=== PATIENT | female | born 1960 | race Caucasian/White ===

== ENCOUNTER 2017-11-16 13:27 | Outpatient (CLI) | payer BC | END 2017-11-16 13:28 | disposition short-term general hospital (02) | LOC: EMS 13:27 | PROVIDERS: ATTEND Surgery | DX: S68.126A Partial traumatic metacarpophalangeal amputation of right little finger, initial encounter (principal); W29.3XXA Contact with powered garden and outdoor hand tools and machinery, initial encounter; Y92.009 Unspecified place in unspecified non-institutional (private) residence as the place of occurrence of the external cause | CPT/HCPCS: A0425; A0427 ==

== ENCOUNTER 2017-11-30 13:23 | Outpatient (CLI) | payer BC ==
--- NOTE | 2017-12-01 16:10 | Mammography Report ---
Procedure Date: 11/30/2017 Accession Number: [id number] / [id number] Procedure: MGN - Screening Mammo Dig Bilat CPT Code: FULL RESULT: EXAM: Screening Mammo Dig Bilat DATE: 11/30/2017 1:43 PM CLINICAL HISTORY: 57-year-old female with late childbearing and history of early menses as well as family history of cancer in her mother at age 62 presents for screening mammogram. TECHNIQUE: Bilateral CC and MLO views were obtained. COMPARISON: 02/26/2016, 06/08/2013, 05/19/2009, 01/04/2008. FINDINGS: The breasts demonstrate scattered fibroglandular densities bilaterally. No suspicious masses, clustered microcalcifications, or regions of architectural distortion are identified. IMPRESSION: Negative examination RECOMMENDATION: Routine annual screening unless otherwise clinically indicated. BIRADS CATEGORY 1: Negative STANDARD QUALIFYING STATEMENTS: 1. This examination was reviewed with the aid of Computer-Aided Detection (CAD). 2. A negative or benign imaging report should not delay biopsy if clinically suspicious findings are present. Consider surgical consultation if warrented. More than 5% of cancers are not identified by imaging. 3. Dense breasts may obscure an underlying neoplasm.
== END 2017-11-30 13:24 | disposition home or self-care (01) ==
LOC: DI.N 13:23
PROVIDERS: ATTEND Nurse Practitioner Family
DX: Z12.31 Encounter for screening mammogram for malignant neoplasm of breast (principal)
CPT/HCPCS: 77067

== ENCOUNTER 2018-01-02 10:36 | Outpatient (CLI) | payer BC ==
--- NOTE | 2018-01-05 16:17 | DEXA Report ---
Reason: POSTMENOPAUSAL Procedure Date: 01/02/2018 Accession Number: [id number] / [id number] Procedure: DEX - Dexa Spine and/or Hip CPT Code: FULL RESULT: EXAM: Dexa Spine and/or Hip DATE: 01/02/2018 11:06 AM CLINICAL HISTORY: POSTMENOPAUSAL TECHNIQUE: Dual energy x-ray absorptiometry (DXA) was performed on a DVTel System. Regions measured are the AP Spine, femoral neck, and if needed forearm. COMPARISON: None. In accordance with the International Society for Clinical Densitometry (ISCD) guidelines, data from previous exams may be reanalyzed using current recommendations and techniques. This is done to allow a more accurate basis for comparison with the current study. FINDINGS: The data for the lumbar spine is as follows: BMD (g/cm/cm) T-SCORE Z-SCORE REGION L1 1.279 1.2 1.8 L2 1.374 1.5 2.0 L3 1.517 2.6 3.2 L4 1.220 0.2 0.7 TOTAL 1.332 1.3 1.8 NOTE: All evaluable vertebrae are used for classification The data for the hip is as follows: BMD (g/cm/cm) T-SCORE Z-SCORE REGION Neck 0.979 -0.4 0.4 TOTAL 0.938 -0.6 -0.1 NOTE: The femoral neck or total proximal femur, whichever is lowest, is used for classification. IMPRESSION: THE WHO CLASSIFICATION BASED ON THE INTERNATIONAL REFERENCE STANDARD IS NORMAL. THE FRACTURE RISK IS NOT INCREASED. RECOMMENDATION: Patients with diagnosis of osteoporosis or osteopenia should have regular bone mineral density assessment. For those eligible for Medicare, routine testing is allowed once every 2 years. Testing frequency can be increased for patients who have rapidly progressing disease or for those who are receiving medical therapy to restore bone mass. COMMENT: World Health Organization (WHO) definitions for osteoporosis and osteopenia: NORMAL BMD: T-score at -1.0 or higher, fracture risk is low OSTEOPENIA BMD: T-score between -1.0 and -2.5, fracture risk is increased. OSTEOPOROSIS BMD: T-score at -2.5 or lower, fracture risk is high. National Osteoporosis Foundation recommends: 1. Obtain adequate dietary calcium (at least 1200 mg per day) and vitamin D (400-800 international units per day). 2. Participate, as appropriate, in regular weightbearing and muscle-strengthening exercise. 3. Avoid tobacco use and reduce alcohol and caffeine intake. 4. For more detailed information see the website at www.NOF.org.
== END 2018-01-02 10:37 | disposition home or self-care (01) ==
LOC: DI 10:36
PROVIDERS: ATTEND Nurse Practitioner Family
DX: Z78.0 Asymptomatic menopausal state (principal)
CPT/HCPCS: 77080

== ENCOUNTER 2019-03-07 10:30 | Outpatient (CLI) | payer BC ==
--- NOTE | 2019-03-09 11:05 | Mammography Report ---
Reason: SCREENING MAMMO Procedure Date: 03/07/2019 Accession Number: [id number] / [id number] Procedure: MGN - Screening Mammo Dig Bilat CPT Code: Final Report FULL RESULT: EXAM: Screening Mammo Dig Bilat DATE: 03/07/2019 10:51 AM CLINICAL HISTORY: Late childbearing, early menses, mother with breast cancer. TECHNIQUE: (B) - Bilateral CC and MLO views were obtained. COMPARISON: 11/30/2017, 02/26/2016, 06/08/2013, 05/19/2009 PARENCHYMAL PATTERN: (A) - The breasts demonstrate scattered fibroglandular densities bilaterally. FINDINGS: No significant interval change on the left. There are no suspicious masses, calcifications, or areas of distortion. On the right there is an enlarging faint nodular density in the posterior superior breast seen on the MLO view. It most likely lies laterally on the CC projection. Further evaluation by additional views and possible ultrasound suggested. Otherwise stable right breast. IMPRESSION: Incomplete examination. BI-RADS category 0. Needs additional evaluation right breast by spot compression, true lateral, and rotated CC projections. Ultrasound may also be needed. Negative left breast. RECOMMENDATION: (ADDMU) - Additional views using both Mammography and Ultrasound recommended. Right breast BI-RADS CATEGORY: (0) - Incomplete Examination - need additional evaluation. STANDARD QUALIFYING STATEMENTS: 1. This examination was not reviewed with the aid of Computer-Aided Detection (CAD). 2. A negative or benign imaging report should not preclude biopsy if clinically suspicious findings are present. 3. Dense breasts may obscure an underlying neoplasm. 4. This examination was reviewed without the aid of 3D breast imaging (tomosynthesis).
== END 2019-03-07 10:31 | disposition home or self-care (01) ==
LOC: DI.N 10:30
DX: Z12.31 Encounter for screening mammogram for malignant neoplasm of breast (principal); R92.8 Other abnormal and inconclusive findings on diagnostic imaging of breast; Z80.3 Family history of malignant neoplasm of breast
CPT/HCPCS: 77067

== ENCOUNTER 2019-03-30 14:25 | Outpatient (CLI) | payer BC ==
--- NOTE | 2019-03-30 15:40 | Mammography Report ---
Reason: ABNORMAL MAMMO Procedure Date: 03/30/2019 Accession Number: [id number] / [id number] Procedure: BREE - Diagnostic Dig RT CPT Code: Final Report FULL RESULT: EXAM: Diagnostic Dig RT DATE: 03/30/2019 3:07 PM CLINICAL HISTORY: Diagnostic examination. The patient is recalled from screening for a right breast asymmetry. TECHNIQUE: (R) - Right CC, spot CC, ML, spot MLO images are obtained. Focused right breast ultrasound is performed. COMPARISON: 03/07/2019 through 12/24/2006. PARENCHYMAL PATTERN: (A) - The breast(s) demonstrate(s) scattered fibroglandular densities. FINDINGS: The previously seen asymmetry persists on spot imaging and is identified as a lobulated partially obscured nodule on 3-D tomography, for example image 32 of the right cc projection and 3-D right ML image 30. Focused right breast ultrasound is performed which demonstrates a 0.9 x 0.3 x 0.9 cm gently lobulated cyst with a thin septation and no solid soft tissue component which is wider than tall at the 10:00 position 8 cm from the nipple, concordant position with typically benign appearance. No suspicious findings are made by ultrasound. There are no mammographically suspicious masses, calcifications, or areas of distortion. IMPRESSION: Benign findings. BI-RADS category 2. RECOMMENDATION: (ANNUAL) - Recommend routine annual screening mammography. BI-RADS CATEGORY: (2) - Benign Findings. STANDARD QUALIFYING STATEMENTS: 1. This examination was not reviewed with the aid of Computer-Aided Detection (CAD). 2. A negative or benign imaging report should not preclude biopsy if clinically suspicious findings are present. 3. Dense breasts may obscure an underlying neoplasm. 4. This examination was reviewed with the aid of 3D breast imaging (tomosynthesis).
== END 2019-03-30 14:26 | disposition home or self-care (01) ==
LOC: DI 14:25
PROVIDERS: ATTEND Family Medicine
DX: N60.01 Solitary cyst of right breast (principal)
CPT/HCPCS: 76642

== ENCOUNTER 2023-01-25 14:48 | Outpatient (CLI) | payer BC ==
--- NOTE | 2023-01-25 15:51 | Sleep Patient Instructions ---
Sleep Center Visit Summary - Patient Visit Information Reason for Visit: Initial consult for evaluation of sleep disordered breathing and other sleep issues. - Patient Instructions Instructions Attached: Sleep Clinic Visit, Sleep Study Home Monitor, Sleep Study Additional Instructions: You will be completing a sleep study, either an in-lab polysomnography (PSG) or home sleep study (HST). You will follow-up in the sleep care office after the sleep study is completed to hear the results and talk about therapy, if needed. You will be called by our office staff to schedule this appointment, but you may contact us with any questions. - Clinic Information Contact: [facility] [address] [place] [address] [email or web address] T: [phone]
--- NOTE | 2023-01-25 16:00 | SLEEP CARE CONSULTATION ---
Information from patient questionnaire entered by Bárbara Tidwell. I have reviewed and concur with the information entered by Bárbara Tidwell. This document represents the service I personally performed and the decisions made by me, Jo Reddy ARNP. History of Present Illness Service Date and Time: 01/25/2023 1448 Reason for Visit: New patient Chief Complaint: reports: Snoring Date of Onset: 2-3YRS Usual bedtime: 10PM Time it takes to fall asleep: 10MIN Snores at night: Yes Observed to quit breathing while asleep: Yes Sleeps alone due to snoring: No Number of times waking at night: 2-3 Reasons for waking at night: reports: Snoring (just with dozing in chair, snorted awake), Bathroom, Other (?hot flashes ). denies: Choking, Gasping for air Toss, Turn, or Twitch while sleeping: No Recalls having dreams: No Usually gets out of bed at: 6-630AM Feels refreshed in the morning: Yes Morning headache: No Sleepy or fatigued during the day: Yes (sometimes) Ever fallen asleep while driving: No (occasionally will feel sleepy sometimes on long stretches; no accidents) Takes day naps: Yes (2-3 times a week if not doing things; last around 15-20 mins) Dreams during day naps: No Prior sleep studies: No Additional HPI information: I had the pleasure of seeing JONNY RILEY today regarding the possibility of her having a sleep disorder. Her current complaint is snoring. She states that she knew that she snores but when she went on a trip with a friend who is on a CPAP and was told that she stopped breathing and was snoring loudly waking her up. She states her siblings snore loudly but no one is on a CPAP. She spoke with her PCP about her sleep and was referred here. 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 Patient is and lives in [place]. Have you smoked in the past 12 months: No Alcohol use: Yes Alcohol amount and frequency: 1 GLASS WINE 1-2X WEEK Caffeine use: Yes Caffeine amount and frequency: 3-4 CUPS EVERYDAY Family History Family history of sleep disordered breathing: Yes Family Hx Sleep Apnea: Sibling: Snoring Allergies and Home Medications Known drug allergies: No Drug allergies reviewed: Yes Home medication list reviewed: Yes Allergy and home medication list: Allergies No Known Drug Allergies Allergy (Verified 01/25/23 15:17) Home Medications Atorvastatin [Lipitor] See Rx Instructions .ROUTE .COMPLEX 01/24/23 [History] Estralnoreth See Rx Instructions .ROUTE .COMPLEX 01/24/23 [History] Losartan [Cozaar] See Rx Instructions .ROUTE .COMPLEX 01/24/23 [History] Multivitamin See Rx Instructions .ROUTE .COMPLEX 01/25/23 [History] Review of Systems Weight gain over past 5 years: 10 Cardiovascular: reports: high blood pressure Respiratory: denies: shortness of breath Gastrointestinal: denies: heartburn Urinary: reports: frequency Neurological: denies: headaches Psychiatric: denies: anxiety, depression Ear/Nose/Throat: reports: nasal congestion, wisdom teeth removed. denies: tonsillectomy Endocrine: reports: sluggishness Immunologic: denies: allergies to food or environment Physical Exam Vital signs obtained and entered by: BÁRBARA Clark MA Blood Pressure: 124/72 (LEFT ARM) Cuff size: long Heart Rate: 70 O2 Saturation: 97 Height: 5 ft 6 in Weight: 189 lb 12.8 oz Body Mass Index: 30.6 BMI Classification: Obese Neck circumference: 14.25 Mouth and throat: narrow oropharynx Soft palate: normal Hard palate: normal Uvula: normal Uvula visualization: 50% Mallampati Class II Tongue: enlarged in size with teeth amador on lateral edges Tonsils: small Neck: normal w/o lymphadenopathy or thyromegaly Heart: regular rate and rhythm Lungs: clear bilaterally Impression and Plan 1. Suspected Obstructive Sleep Apnea-Hypopnea Syndrome, as suggested by a history of loud and irregular snoring, observed cessation of breath while asleep, and excessive daytime sleepiness. Narrow oropharynx and obesity are common predisposing factors for obstructive sleep apnea-hypopnea syndrome. I recommend proceeding to polysomnography to confirm the diagnosis and to assess severity. If the patient has significant sleep disordered breathing, a manual CPAP titration study will also be performed to find the optimal treatment pressure. I informed the patient of what the sleep studies involve and after some discussion, obtained agreement to proceed. The pathophysiology of obstructive sleep apnea-hypopnea syndrome was discussed with the patient and health risks of cardiovascular and cerebrovascular disease if not treated. 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 Patient agreed to plan. * Schedule polysomnography. * Avoid long distance driving or driving when feeling sleepy. * Avoid alcohol, sedative and muscle relaxant around bedtime. * Attempt to lose weight. * Review instructions provided by trained office staff on how to prepare for the sleep study. * Return for follow-up after sleep study completed. Counseling Topics: Weight loss health impact Visit Type: In Office Time Spent with Patient (minutes): 33 Provider Statement: I spent 100% of the Face to Face Visit with the patient with greater than 50% spent counseling the patient and coordination of care.
[2023-01-25 16:05] VITALS: BP 124/72; O2SAT 97
== END 2023-01-25 14:49 | disposition home or self-care (01) ==
LOC: SC 14:48
PROVIDERS: ATTEND Nurse Practitioner Family
DX: G47.10 Hypersomnia, unspecified (principal); R53.83 Other fatigue; R06.83 Snoring; R06.81 Apnea, not elsewhere classified; E66.9 Obesity, unspecified; I10 Essential (primary) hypertension; Z68.30 Body mass index [BMI] 30.0-30.9, adult
CPT/HCPCS: 99203; 99212

== ENCOUNTER 2023-02-16 09:32 | Outpatient (CLI) | payer BC | END 2023-02-16 09:33 | disposition home or self-care (01) | LOC: SC 09:32 | PROVIDERS: ATTEND Nurse Practitioner Family | DX: G47.33 Obstructive sleep apnea (adult) (pediatric) (principal); R09.02 Hypoxemia; I10 Essential (primary) hypertension | CPT/HCPCS: 95806 ==

== ENCOUNTER 2023-03-24 09:50 | Outpatient (CLI) | payer BC ==
--- NOTE | 2023-03-24 10:12 | Sleep Patient Instructions ---
Sleep Center Visit Summary - Patient Visit Information Reason for Visit: Sleep study follow-up - Patient Instructions Additional Instructions: You are to start Positional therapy to control your sleep apnea. You may obtain positional belts or other commercial devices online. You may also use pillows to position yourself on your side or a T shirt with balls sewn into the back to help keep you on your side to sleep. We would like to follow up with you in a month to check effectiveness of therapy. Please call office to schedule a follow up appointment in the sleep care office in 1-2 months. - Clinic Information Contact: [facility] [address] [place] [address] [email or web address] T: [phone]
--- NOTE | 2023-03-24 10:17 | SLEEP CARE CONSULTATION ---
Information from patient questionnaire entered by Estella Tidwell. I have reviewed and concur with the information entered by Estella Tidwell. This document represents the service I personally performed and the decisions made by , Jo Reddy ARNP. History of Present Illness Service Date and Time: 03/24/2023 0950 Initial [place] Sleepiness Scale score: 15 (01/09/23) Current [place] Sleepiness Scale score: 12 Additional HPI information: JONNY RILEY returns for follow up and results of the recently performed home sleep study. The sleep study showed mild obstructive sleep apnea with an average AHI of 8.2 and radha oxygen saturation of 89%. I explained the pathophysiology behind obstructive sleep apnea. We then spent quite a bit of time discussing different treatment options. For mild obstructive sleep apnea, surgery and oral appliance are alternatives to nasal CPAP therapy but in moderate or severe cases, nasal CPAP is the most effective and reliable treatment. Because apnea is primarily in supine position, then positional management therapy could be effective. Methods discussed such as positioning with pillows, using a T-shirt with tennis balls in the back or commercial products that have a pillow format on back to prevent supine sleep. I reviewed the impact of weight changes on sleep apnea and strongly recommended losing weight. Patient counseled not drink alcohol less than 4 hours before bedtime as it can increase snoring and apnea. Patient was cautioned about risks of drowsy driving until sleepiness symptoms resolve. Patient denies drowsy driving. Sleep Study - Results Type of Sleep Study: Home sleep study (COMPLETED 02/16/23) Prior sleep studies: No Polysomnography/Home Sleep Study results: Physician Impression: The quality of the study is good. The length of the study is adequate (> 240 minutes). Please also see the tabulated and graphic data. 1. Obstructive Sleep Apnea-Hypopnea (ICD-10 G47.33), mild, with an AHI of 8.2/hr and radha SaO2 of 89%. During the study, the patient had 41 apneas (41 obstructive, 0 central, 0 mixed) and 20 hypopneas. The longest episode lasted 88.5 seconds. The respiratory events occurred predominantly during supine sleep (supine AHI was 44.2 and non-supine, 5.09). 2. Hypoxemia (ICD-10 R09.02), minimal, with the lowest oxygen saturation of 89 % and 0.0 minutes with SaO2 under 90%. Baseline oxygen saturation was normal (Average oxygen saturation was 94%). Allergies and Home Medications Known drug allergies: No Drug allergies reviewed: Yes Home medication list reviewed: Yes (no changes) Allergy and home medication list: Allergies No Known Drug Allergies Allergy (Verified 03/23/23 08:57) Review of Systems Review of systems same as previous: Yes (no changes) Physical Exam Vital signs obtained and entered by: Jo Rae NP Blood Pressure: 130/77 Cuff size: wrist (right) Heart Rate: 68 O2 Saturation: 98 Height: 5 ft 6 in Weight: 193 lb 12.8 oz Body Mass Index: 31.2 BMI Classification: Obese Impression and Plan 1. Obstructive Sleep Apnea-Hypopnea Syndrome, mild, with lowest oxygen saturat ion of 89%. Positive pressure therapy could benefit borderline hypertension. Since patients apnea is primarily in supine position, patient advised to try positional therapy and agreed with plan. He is also advised to lose weight as this will reduce snoring and apnea. An oral appliance can also be used for snoring but often is not covered by insurance. Follow up is scheduled for 1-2 months to check effectiveness. 2. Obesity, unspecified. Currently patients BMI is 31.2. Obesity increases the risk of apnea, CPAP pressure requirements and overall health risks especially cardiovascular and diabetes. Thus patient is advised to lose weight. * Positional therapy. * Attempt to lose weight. * Avoid alcohol consumption near bedtime. * Avoid supine sleep until using CPAP. * The patient is again cautioned about driving until sleepiness completely resolves. * Return in 1-2 months for follow up. I will assess response to therapy at that time. Counseling Topics: Sleeping position, Weight loss health impact Follow up with Sleep Care in: 1-2 months Visit Type: In Office Time Spent with Patient (minutes): 18 Provider Statement: I spent 100% of the Face to Face Visit with the patient with greater than 50% spent counseling the patient and coordination of care.
[2023-03-24 10:21] VITALS: BP 130/77; O2SAT 98
== END 2023-03-24 09:51 | disposition home or self-care (01) ==
LOC: SC 09:50
PROVIDERS: ATTEND Nurse Practitioner Family
DX: G47.33 Obstructive sleep apnea (adult) (pediatric) (principal); E66.9 Obesity, unspecified; Z68.31 Body mass index [BMI] 31.0-31.9, adult
CPT/HCPCS: 99212

== ENCOUNTER 2023-05-12 09:09 | Outpatient (CLI) | payer BC ==
--- NOTE | 2023-05-12 09:23 | Sleep Patient Instructions ---
Sleep Center Visit Summary - Patient Visit Information Reason for Visit: 6 weeks follow-up for positional therapy - Patient Instructions Additional Instructions: You were here for follow up of Positional therapy. You will be continued on positional therapy. You should follow up with sleep care in 12 months. You may contact us sooner for any questions or concerns. - Clinic Information Contact: [facility] [address] [place] [address] [email or web address] T: [phone]
--- NOTE | 2023-05-12 09:27 | SLEEP CARE CONSULTATION ---
Information from patient questionnaire entered by Estella Tidwell. I have reviewed and concur with the information entered by Estella Tidwell. This document represents the service I personally performed and the decisions made by me, Jo Reddy ARNP. History of Present Illness Service Date and Time: 05/12/2023 09 Previous diagnosis: Mild, Obstructive Sleep Apnea-Hypopnea Syndrome AHI: 8.2 Reason for follow up: other (6 WEEK F/U POSITIONAL) Prior sleep studies: No Type of Sleep Study: Home sleep study (02/16/2023 [facility]) HPI additional information: JONNY RILEY was diagnosed to have mild, AHI 8.2, obstructive sleep apnea- hypopnea syndrome and returned today for Positional therapy six week follow-up. Sleep Study - Results Prior sleep studies: No CPAP Compliance Data Compliance data discussion: She says she normally sleeps on her side and it has been easy to just sleep non- supine. Subjective On therapy, patient: reports: sleeping better, awakening more refreshed, being more awake and alert during the day, more rested overall. denies: drowsiness while driving Initial [place] Sleepiness Scale score: 15 (01/09/23) Current [place] Sleepiness Scale score: 12 Allergies and Home Medications Known drug allergies: No Drug allergies reviewed: Yes Home medication list reviewed: Yes (no changes) Allergy and home medication list: Allergies No Known Drug Allergies Allergy (Verified 05/10/23 12:02) Review of Systems Review of systems same as previous: Yes (no changes) Physical Exam Vital signs obtained and entered by: DORA CAZARES Blood Pressure: 136/72 Cuff size: wrist (right) Heart Rate: 68 O2 Saturation: 99 Height: 5 ft 6 in Weight: 193 lb 6.4 oz Body Mass Index: 31.1 BMI Classification: Obese Impression and Plan 1. Obstructive Sleep Apnea-Hypopnea Syndrome, mild. Using positional therapy, the patient has better sleep quality and is more rested overall. Patient states she normally sleeps on her side and it is sustainable. She wakes up feeling rested and is sleeping well. Her [place] has improved from 15\24 to 12\24. She will continue with positional therapy and feels comfortable enough to go up for a yearly visit at this time. She may come in if she has any problems or concerns sooner. Patient's apnea severity and rationale for treatment to reduce apnea, improve sleep quality and reduce cardiovascular and cerebrovascular events was reviewed. 2. Obesity, unspecified. Currently patients BMI is 31.1. Obesity increases the risk of apnea, CPAP pressure requirements and overall health risks especially cardiovascular and diabetes. Thus patient is advised to lose weight. -Continue positional therapy -Attempt to lose weight -Call this office if any problems -Return for follow up in 12 months, or sooner if concerns arise Counseling Topics: Sleeping position, Weight loss health impact Follow up with Sleep Care in: 1 year Visit Type: In Office Time Spent with Patient (minutes): 14 Provider Statement: I spent 100% of the Face to Face Visit with the patient with greater than 50% spent counseling the patient and coordination of care.
[2023-05-12 09:30] VITALS: BP 136/72; O2SAT 99
== END 2023-05-12 09:10 | disposition home or self-care (01) ==
LOC: SC 09:09
PROVIDERS: ATTEND Nurse Practitioner Family
DX: G47.33 Obstructive sleep apnea (adult) (pediatric) (principal); E66.9 Obesity, unspecified; Z68.31 Body mass index [BMI] 31.0-31.9, adult
CPT/HCPCS: 99212